=== PATIENT | female | born 1965 ===

== ENCOUNTER 2022-12-20 05:55 | Day surgery (SDC) | payer OTHER ==
[~2022-12-20] VITALS: Ht 167.6 cm; Wt 49.9 kg
[~2022-12-20 05:55] MED LIST: CALCIUM + D3 E1 EACH PO; D3 + K2 DOTS 11 EACH PO; MAGNESIUM400 MG PO; MULTIPLE VITAM1 EAC2 PO; [UNRECOGNIZED DRUG - OTHER]
== END 2022-12-20 17:05 | disposition home or self-care (01) ==
LOC: EDBD → CIR.AMB 05:55
PROVIDERS: ATTEND Surgery
DX: K40.90 Unilateral inguinal hernia, without obstruction or gangrene, not specified as recurrent (principal); Z20.822 Contact with and (suspected) exposure to COVID-19; Z88.6 Allergy status to analgesic agent
CPT/HCPCS: 49505; C1781